=== PATIENT | female | born 1980 | race Native Hawaiian/Other Pacific Islander ===

== ENCOUNTER 2017-02-23 23:12 | Emergency (ER) | payer OTHER ==
[2017-02-23 23:54] LABS: Hematocrit 40.2 % (30.3-42.9); Hemoglobin 13.8 gm/dl (10.1-14.3); Mean Corpuscular HGB Conc 34 % (30-34); Mean Corpuscular Hemoglobin 31 pg (28-32); Mean Corpuscular Volume 91 fl (79-97); Platelet Count 232 K/mm3 (140-440); Red Blood Count 4.41 M/mm3 (3.65-5.03); Red Cell Distribution Width 12.8 % (13.2-15.2); White Blood Count 6.7 K/mm3 (4.5-11.0)
[2017-02-24 00:13] LABS: Anion Gap 19 mmol/L; BUN/Creatinine Ratio 22.85; Blood Urea Nitrogen 16 mg/dL (7-17); Calcium 8.8 mg/dL (8.4-10.2); Carbon Dioxide 25 mmol/L (22-30); Chloride 99.5 mmol/L (98-107); Glucose 113 mg/dL (65-100); Sodium 139 mmol/L (137-145)
[2017-02-24 05:44] LABS: Anisocytosis RARE; Blastocytes % (Manual) 0 %; Burr Cells Rare
[2017-02-24 05:45] LABS: Diff Status Complete; Large Platelets Rare
--- NOTE | 2017-02-24 07:04 | Emergency Department Report ---
ED Chest Pain HPI - General Chief Complaint: Chest Pain Stated Complaint: CHEST PAIN Time Seen by Provider: 02/24/17 07:03 Source: patient Mode of arrival: Ambulatory Limitations: No Limitations - History of Present Illness Initial Comments: Patient is a 36-year-old female with no past medical history presenting with complaints of chest tightness. Patient reports for the last 4 days she's had intermittent bouts of chest tightness. Pt reports the episodes last seconds at a time associated with dizziness. Pt never has had episodes like this in the past. She is a smoker, but denies any familial cardiac history. Pt reports she is under a lot of stress and feels this is contributing to her symptoms. Otherwise no fevers, chills, SOLIS's, vision changes, hearing changes, nausea, vomiting, diaphoresis, arm pains, parasthesias, SOB, abd pain, hemoptysis, travel, OCP use, h/o malignancy, h/o DVT/PE, or sick contacts Severity scale (0 -10): 6 - Related Data Allergies Allergy/AdvReac Type Severity Reaction Status Date / Time No Known Allergies Allergy Unverified 02/23/17 23:33 CYNDEE score - Cyndee Score Age > 65: (0) No Aspirin use within the Past 7 Days: (0) No 3 or more CAD Risk Factors: (0) No 2 or more Angina events in past 24 hrs: (0) No Known CAD with more than 50% Stenosis: (0) No Elevated Cardiac Markers: (0) No ST Deviation Greater than 0.5mm: (0) No CYNDEE Score: 0 ED Review of Systems ROS: Stated complaint: CHEST PAIN Other details as noted in HPI Comment: All other systems reviewed and negative ED Past Medical Hx - Past Medical History Previous Medical History?: No - Surgical History Additional Surgical History: BL bunion removal - Social History Smoking Status: Current Every Day Smoker ED Physical Exam - General Limitations: No Limitations General appearance: alert, in no apparent distress - Head Head exam: Present: atraumatic, normocephalic - Eye Eye exam: Present: normal appearance - ENT ENT exam: Present: mucous membranes moist - Neck Neck exam: Present: normal inspection - Respiratory Respiratory exam: Present: normal lung sounds bilaterally. Absent: respiratory distress - Cardiovascular Cardiovascular Exam: Present: regular rate, normal rhythm. Absent: systolic murmur, diastolic murmur, rubs, gallop - GI/Abdominal GI/Abdominal exam: Present: soft, normal bowel sounds - Extremities Exam Extremities exam: Present: normal inspection - Back Exam Back exam: Present: normal inspection - Neurological Exam Neurological exam: Present: alert, oriented X3 - Psychiatric Psychiatric exam: Present: normal affect, normal mood - Skin Skin exam: Present: warm, dry, intact, normal color. Absent: rash ED Course Vital Signs 02/23/17 02/24/17 02/24/17 23:28 03:51 06:49 Temperature 97.9 F 97.7 F Pulse Rate 66 55 L 55 L Respiratory 18 12 13 Rate Blood Pressure 113/70 111/80 Blood Pressure [Left] O2 Sat by Pulse 100 100 100 Oximetry 02/24/17 02/24/17 02/24/17 06:51 07:00 07:15 Temperature 97.7 F Pulse Rate 55 L 58 L 58 L Respiratory 9 L 14 16 Rate Blood Pressure 121/71 Blood Pressure 121/71 118/79 [Left] O2 Sat by Pulse 99 100 100 Oximetry 02/24/17 07:16 Temperature Pulse Rate 58 L Respiratory Rate Blood Pressure Blood Pressure [Left] O2 Sat by Pulse Oximetry ED Medical Decision Making - Lab Data Result diagrams: 02/23/17 23:36 02/23/17 23:36 - EKG Data -: EKG Interpreted by Me (time 2319) EKG shows normal: sinus rhythm (sinus rhythm), axis, intervals (QTC 418 ms), QRS complexes (no LVH), ST-T waves (no ST changes, no STEMI) Rate: normal (61 bpm) - Radiology Data Radiology results: image reviewed CXR: No acute findings as visualized by me - Medical Decision Making Results discussed with patient at bedside. Given patient's age, risk factors, and family history low risk for cardiac event PERC: 0, low risk for PE Pt to follow up with PMD Critical care attestation.: If time is entered above; I have spent that time in minutes in the direct care of this critically ill patient, excluding procedure time. ED Disposition Clinical Impression: Chest pain due to psychological stress, Anxiety Disposition: DISCHARGED TO HOME OR SELFCARE Is pt being admited?: No Condition: Stable Instructions: Noncardiac Chest Pain (ED), Anxiety (ED) Referrals: [facility] [Other] - 3-5 Days
[2017-02-24 09:09] VITALS: BP 98/57
--- NOTE | 2017-02-24 10:29 | XRay Report ---
CHEST TWO VIEWS: 02/23/17 23:12:00 CLINICAL: Chest pain. COMPARISON: None FINDINGS: Normal heart and pulmonary vasculature. Lungs are mildly hyperexpanded and clear.The bones and soft tissues are unremarkable. IMPRESSION: Mild pulmonary hyperinflation but otherwise normal.
== END 2017-02-24 09:00 | disposition home or self-care (01) ==
LOC: ED 23:12
DX: R07.89 Other chest pain (principal); F41.9 Anxiety disorder, unspecified; F17.200 Nicotine dependence, unspecified, uncomplicated
CPT/HCPCS: 36415; 71020; 80048; 81025; 84484; 85007; 85025; 93005; 93010; 99285

== ENCOUNTER 2017-02-27 17:56 | Emergency (ER) | payer OTHER ==
[2017-02-27 19:52] LABS: Basophils % (Auto) 0.4 % (0.0-1.8); Eosinophils % (Auto) 0.6 % (0.0-4.3); Hemoglobin 14.5 gm/dl (10.1-14.3); Mean Corpuscular HGB Conc 35 % (30-34); Mean Corpuscular Hemoglobin 31 pg (28-32); Mean Corpuscular Volume 90 fl (79-97); Platelet Count 238 K/mm3 (140-440); Red Blood Count 4.66 M/mm3 (3.65-5.03); Red Cell Distribution Width 12.5 % (13.2-15.2); White Blood Count 9.6 K/mm3 (4.5-11.0)
[2017-02-27 20:12] LABS: Alanine Aminotransferase 12 units/L (7-56); Albumin 4.3 g/dL (3.9-5); Alkaline Phosphatase 46 units/L (35-129); Anion Gap 21 mmol/L; BUN/Creatinine Ratio 21.66; Blood Urea Nitrogen 13 mg/dL (7-17); Carbon Dioxide 21 mmol/L (22-30); Chloride 99.8 mmol/L (98-107); Creatine Kinase 54 units/L (30-135); Glucose 125 mg/dL (65-100); Potassium 3.7 mmol/L (3.6-5.0); Sodium 138 mmol/L (137-145); Total Protein 6.5 g/dL (6.3-8.2)
[2017-02-27 20:18] LABS: Creatine Kinase MB < 1.0 ng/mL (0.0-4.0)
[2017-02-27] MEDS ORDERED: NACL 0.9% 1000 ML 2,000 ML ONE (21:49)
--- NOTE | 2017-02-27 21:57 | Emergency Department Report ---
ED Palpitations HPI - General Chief Complaint: Arrhythmia/Palpitations Stated Complaint: ANXIETY,TACHYCARDIA Time Seen by Provider: 02/27/17 21:52 Source: patient, EMS Mode of arrival: Stretcher Limitations: No Limitations - History of Present Illness Initial Comments: Patient is a 36-year-old female presenting to the ER with palpitations, chest pain, paresthesias of the upper extremities and lower extremities. Patient is known to me, patient was seen 1 week ago for similar symptoms, patient did follow up with a sediment remediation consultant and has a Holter monitor in place. Patient now presents with worsening of her palpitations 1 day with chest pain. Patient reports the chest pain is intermittent in sharp, in the middle of her chest. However currently chest pain-free. Pt thought this was due to anxiety and has taken OTC anxiety relief with some improvement, but reports she did not take it today. She is a single mother of 3 small children, 1 of which is special needs. Pt does not report any increased in care needs or increased stress from taking care of her children. Otherwise no fevers, chills, headaches, dizziness, nausea , vomiting, diarrhea, shortness of breath, falls, gait instability, travel, or sick contacts. Complaint: "heart racing", palpitations - Related Data Home Medications Medication Instructions Recorded Confirmed Last Taken Multivits,Stress Formula [Stress 1 tab PO QDAY 02/27/17 02/27/17 Unknown Formula] Allergies Allergy/AdvReac Type Severity Reaction Status Date / Time No Known Allergies Allergy Unverified 02/23/17 23:33 ED Review of Systems ROS: Stated complaint: ANXIETY,TACHYCARDIA Other details as noted in HPI Comment: All other systems reviewed and negative ED Past Medical Hx - Past Medical History Previous Medical History?: No - Surgical History Past Surgical History?: Yes Additional Surgical History: BL bunion removal - Social History Smoking Status: Never Smoker Substance Use Type: None - Medications Home Medications: Home Medications Medication Instructions Recorded Confirmed Last Taken Type Multivits,Stress Formula [Stress 1 tab PO QDAY 02/27/17 02/27/17 Unknown History Formula] ED Physical Exam - General Limitations: No Limitations General appearance: alert, in no apparent distress - Head Head exam: Present: atraumatic, normocephalic - Eye Eye exam: Present: normal appearance - ENT ENT exam: Present: mucous membranes moist - Neck Neck exam: Present: normal inspection - Respiratory Respiratory exam: Present: normal lung sounds bilaterally. Absent: respiratory distress - Cardiovascular Cardiovascular Exam: Present: regular rate, normal rhythm. Absent: systolic murmur, diastolic murmur, rubs, gallop - GI/Abdominal GI/Abdominal exam: Present: soft, normal bowel sounds - Extremities Exam Extremities exam: Present: normal inspection - Back Exam Back exam: Present: normal inspection - Neurological Exam Neurological exam: Present: alert, oriented X3 - Psychiatric Psychiatric exam: Present: normal affect, normal mood - Skin Skin exam: Present: warm, dry, intact, normal color. Absent: rash ED Course Vital Signs 02/27/17 02/27/17 02/27/17 19:14 19:23 19:30 Temperature 98.4 F Pulse Rate 71 68 92 H Respiratory 18 13 13 Rate Blood Pressure 92/49 87/57 Blood Pressure 92/49 [Left] O2 Sat by Pulse 97 98 Oximetry 02/27/17 02/27/17 02/27/17 19:45 20:01 20:15 Temperature Pulse Rate 76 100 H 75 Respiratory 13 13 14 Rate Blood Pressure 87/57 91/63 76/49 Blood Pressure [Left] O2 Sat by Pulse 98 99 100 Oximetry 02/27/17 02/27/17 02/27/17 20:31 20:45 21:01 Temperature Pulse Rate 69 73 75 Respiratory 13 14 14 Rate Blood Pressure 54/26 54/26 68/32 Blood Pressure [Left] O2 Sat by Pulse 98 98 99 Oximetry 02/27/17 02/27/17 02/27/17 21:15 21:31 21:41 Temperature Pulse Rate 99 H 72 96 H Respiratory 12 11 L 13 Rate Blood Pressure 68/32 68/32 67/34 Blood Pressure [Left] O2 Sat by Pulse 97 98 98 Oximetry 02/27/17 02/27/17 02/27/17 21:45 21:51 22:01 Temperature Pulse Rate 96 H 86 100 H Respiratory 14 12 10 L Rate Blood Pressure 57/32 115/61 115/61 Blood Pressure [Left] O2 Sat by Pulse 98 99 100 Oximetry 02/27/17 02/27/17 02/27/17 22:31 23:01 23:30 Temperature Pulse Rate 101 H 82 85 Respiratory 14 11 L 12 Rate Blood Pressure 115/61 115/61 101/48 Blood Pressure [Left] O2 Sat by Pulse 97 100 99 Oximetry 02/27/17 23:45 Temperature Pulse Rate 83 Respiratory 14 Rate Blood Pressure 103/55 Blood Pressure [Left] O2 Sat by Pulse 98 Oximetry ED Medical Decision Making - Lab Data Result diagrams: 02/27/17 19:37 02/27/17 19:37 - EKG Data -: EKG Interpreted by Me - EKG Data When compared to previous EKG there are: no significant change 02/27/17 22:36 Time 22:22, sinus tachycardia at 10 2 bpm, QTc 461 ms, normal axis, no LVH, no ST changes, no STEMI - Radiology Data Radiology results: image reviewed cxr: No acute cardiopulmonary findings as visualized by me - Medical Decision Making Results discussed with the patient. M.5, ordered 2gm IVPB Pt's BP has been very labile in the ED, SBP ranging from 80 to 110, with a normal HR. 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 ED Disposition Clinical Impression: Palpitations, Dizziness, Hypomagnesemia Disposition: DISCHARGED TO HOME OR SELFCARE Is pt being admited?: No Condition: Stable Instructions: Palpitations (ED), Dizziness (ED), Hypomagnesemia (ED) Additional Instructions: Please follow up with your PMD and Library Associate ROSSANA EDWARDS until cleared by your doctor Referrals: [facility] [Other] - 3-5 Days
[2017-02-27] MEDS ORDERED: XANAX PO ONE (22:30)
[2017-02-27] MEDS ORDERED: NACL 0.9% 1000 ML 1,000 ML IV ONE (22:49)
[2017-02-27 22:57] LABS: Bilirubin,Urine NEG (Negative); Blood,Urine NEG (Negative); Ketones,Urine TR mg/dL (Negative); Leukocyte Esterase,Urine NEG (Negative); Nitrite,Urine NEG (Negative); Protein,Urine <15 mg/dL mg/dL (Negative); Urobilinogen,Urine < 2.0 mg/dL (<2.0)
[2017-02-27] MEDS ORDERED: MAGNESIUM SULFATE 2GM/50ML 2 GM/50 ML BAG IV ONE (23:26)
[2017-02-28 01:12] VITALS: BP 99/58
--- NOTE | 2017-02-28 07:41 | XRay Report ---
AP CHEST: HISTORY: Dysrhythmia, palpitations, chest pain AP view of the chest demonstrates a normal mediastinal and cardiac contour with clear lungs and normal bony and soft tissue structures. IMPRESSION: Unremarkable AP chest. No significant change since 02/24/17.
== END 2017-02-28 01:15 | disposition home or self-care (01) ==
LOC: ED 17:56
DX: E83.42 Hypomagnesemia (principal); R42 Dizziness and giddiness; R00.2 Palpitations
CPT/HCPCS: 36415; 71010; 80053; 81001; 81025; 82550; 82553; 83735; 84439; 84443; 84484; 85025; 85379; 93005; 93010; 96365; 99285; J3475; J7030